=== PATIENT | female | born 1965 | race African-American/Black ===

== ENCOUNTER 2018-02-12 18:39 | Emergency (ER) | payer OTHER ==
[2018-02-12] MEDS ORDERED: Sodium Chloride 0.9% 1,000 ML IV ONE (19:05)
[2018-02-12] MEDS ORDERED: Morphine Sulfate 4 mg/mL 1mL Syr IV STA (19:07)
--- NOTE | 2018-02-12 19:13 | ED Physician Chart ---
ED Chief Complaint/HPI - Patient Information Date Seen:: 02/12/18 Time Seen:: 18:50 Chief Complaint:: abdominal pain History of Present Illness:: Patient had onset 2 hours ago of right upper quadrant pain and pain of the superior back both scapular areas. Patient is nauseated (she states she feels like gagging) was had no vomiting or diarrhea. Pain is nonpleuritic. No chills or fever. No shortness of breath Allergies:: Allergies Allergy/AdvReac Type Severity Reaction Status Date / Time iodine Allergy Verified 02/12/18 19:07 Penicillins Allergy Verified 02/12/18 19:07 Historian:: Patient Review:: Nurse's Note Reviewed ED Review of Systems - Review of Systems General/Constitutional: No fever, No chills Skin: No skin lesions Head: No headache Eyes: No loss of vision ENT: No earache Neck: No neck pain, No swelling Cardio Vascular: No chest pain, No palpitations Pulmonary: No SOB GI: Nausea, Vomiting, Pain G/U: No dysuria Musculoskeletal: No bone or joint pain Endocrine: No polyuria Psychiatric: No prior psych history, No anxiety Hematopoietic: No bruising Allergic/Immuno: No urticaria Neurological: No syncope, No focal symptoms ED Past Medical History - Past Medical History Past Medical History: DM, CAD, CHF, Other (patient had a myocardial infarction of her left anterior descending artery 09/25/2016 for which she had balloon angioplasty) Family History: Other (factor V deficiency; congestive heart failure) Social History: Non Smoker, No Alcohol, , Other Employment:: Patient quit smoking one year ago Surgical History: Cholecystectomy, other (empyema) Psychiatricy History: None Medication: Reviewed Family Medical History - Family Member Mother History Unknown: Yes ED Physical Exam - Physical Examination General/Constitutional: Awake, Well-developed, well-nourished, Alert, No distress, GCS 15, Non-toxic appearing, Ambulatory Head: Atraumatic Eyes: Lids, conjuctiva normal, PERRL Skin: Nl inspection, No rash ENMT: External ears, nose nl, Lips, teeth, gums nl Neck: No nuchal rigidity Respiratory: Nl effort/Exclusion, Clear to Auscultation, No Wheeze/Rhonchi/Rales Cardio Vascular: RRR, No murmur, gallop, rubs, NL S1 S2 GI: No organomegaly, No hernia, Normal BS's Other GI comments:: Right upper quadrant tenderness : No CVA tenderness Extremities: Normal digits & nails Neuro/Psych: No focal deficits ED Labs/Radiology/EKG Results - Lab Results Results: Abnormal Lab Results 02/12/18 02/12/18 19:50 19:50 Sodium 143 Potassium 3.3 L Chloride 109 H Carbon Dioxide 22.9 Anion Gap 14.4 BUN 10 Creatinine 0.6 Est GFR ( Amer) > 60.0 Est GFR (Non-Af Amer) > 60.0 BUN/Creatinine Ratio 16.7 Glucose 171 H Calcium 9.7 Troponin I 0.01 Lipase 18 Abnormal Lab Results 02/12/18 02/12/18 02/12/18 19:32 19:32 19:50 WBC 6.3 RBC 5.08 Hgb 15.1 Hct 45.7 MCV 90.0 MCH 29.7 MCHC Differential 33.0 RDW 13.7 Plt Count 25 L* MPV 8.2 Add Manual Diff YES Neutrophils % Band Neutrophils % 0 Lymphocytes % Monocytes % Eosinophils % Basophils % Neutrophils (Manual) 18 L Lymphocytes 78 H Monocytes 2 Eosinophils 2 Basophils 0 Platelet Estimate DECREASED PLATELETS Platelet Morphology NORMAL RBC Morph Micro Appear NORMAL Sodium Potassium Chloride Carbon Dioxide Anion Gap BUN Creatinine Est GFR ( Amer) Est GFR (Non-Af Amer) BUN/Creatinine Ratio Glucose Calcium Troponin I B-Natriuretic Peptide Lipase Urine Source CLEAN C Urine Color YELLOW Urine Clarity CLEAR Urine pH 6.0 Ur Specific Myton 1.025 Urine Protein 100 H Urine Glucose (UA) >=1000 H Urine Ketones NEGATIVE Urine Blood NEGATIVE Urine Nitrate NEGATIVE Urine Bilirubin SMALL H Urine Urobilinogen 0.2 Ur Leukocyte Esterase NEGATIVE Urine RBC 0-2 Urine WBC 0-2 Ur Epithelial Cells FEW Urine Bacteria 1+ H Urine Mucus MODERATE Urine Test NEGATIVE 02/12/18 02/12/18 02/12/18 19:50 19:50 19:50 WBC RBC Hgb Hct MCV MCH MCHC Differential RDW Plt Count MPV Add Manual Diff Neutrophils % Band Neutrophils % Lymphocytes % Monocytes % Eosinophils % Basophils % Neutrophils (Manual) Lymphocytes Monocytes Eosinophils Basophils Platelet Estimate Platelet Morphology RBC Morph Micro Appear Sodium 143 Potassium 3.3 L Chloride 109 H Carbon Dioxide 22.9 Anion Gap 14.4 BUN 10 Creatinine 0.6 Est GFR ( Amer) > 60.0 Est GFR (Non-Af Amer) > 60.0 BUN/Creatinine Ratio 16.7 Glucose 171 H Calcium 9.7 Troponin I 0.01 B-Natriuretic Peptide < 5.0 L Lipase 18 Urine Source Urine Color Urine Clarity Urine pH Ur Specific Myton Urine Protein Urine Glucose (UA) Urine Ketones Urine Blood Urine Nitrate Urine Bilirubin Urine Urobilinogen Ur Leukocyte Esterase Urine RBC Urine WBC Ur Epithelial Cells Urine Bacteria Urine Mucus Urine Test 02/12/18 21:08 WBC 6.3 RBC 5.24 H Hgb 15.5 Hct 46.8 MCV 89.3 MCH 29.5 MCHC Differential 33.0 RDW 13.9 Plt Count 218 D MPV 8.6 Add Manual Diff Neutrophils % 46.9 Band Neutrophils % Lymphocytes % 46.2 Monocytes % 4.9 Eosinophils % 1.4 Basophils % 0.6 Neutrophils (Manual) Lymphocytes Monocytes Eosinophils Basophils Platelet Estimate Platelet Morphology RBC Morph Micro Appear Sodium Potassium Chloride Carbon Dioxide Anion Gap BUN Creatinine Est GFR ( Amer) Est GFR (Non-Af Amer) BUN/Creatinine Ratio Glucose Calcium Troponin I B-Natriuretic Peptide Lipase Urine Source Urine Color Urine Clarity Urine pH Ur Specific Myton Urine Protein Urine Glucose (UA) Urine Ketones Urine Blood Urine Nitrate Urine Bilirubin Urine Urobilinogen Ur Leukocyte Esterase Urine RBC Urine WBC Ur Epithelial Cells Urine Bacteria Urine Mucus Urine Test - Radiology Results Results: Chest x-ray showed atelectasis left side; otherwise negative - EKG Interpretations Rate & Rhythm: normal sinus rhythm with a rate of 99; normal axis; left ventricular hypert ED Assessment - Assessment General Assessment: At 2323 patient's abdominal pain was much improved. Lab tests were normal except for potassium of 3.3 and CAT scan of the abdomen and pelvis showed no acute disease. Patient is okay for discharge with a diagnosis of gastritis. ED Septic Shock - . Is Septic Shock (SBP<90, OR Lactate>4 mmol\L) present?: No ED Reassessment (Disposition) - Diagnosis Diagnosis:: Gastritis; status post cholecystectomy - Aftercare/Follow up Instructions Aftercare/Follow-Up Instructions:: Refer to Discharge Instructions - Patient Disposition Discharge/Transfer:: Home Condition at Disposition:: Stable, Improved
[2018-02-12 20:04] LABS: HEMATOCRIT 45.7 % (41.0-60); HEMOGLOBIN 15.1 gm/dL (12-16); MEAN CORPUSCULAR HEMOGLOBIN 29.7 pg (27.0-31.0); MEAN PLATELET VOLUME 8.2 fl; RED BLOOD COUNT 5.08 Mil/cmm (3.80-5.10); RED CELL DISTRIBUTION WIDTH 13.7 % (11.5-20.0); WHITE BLOOD COUNT 6.3 Th/cmm (4.8-10.8)
[2018-02-12] MEDS ORDERED: Morphine Sulfate 4 mg/mL 1mL Syr ONE (20:10)
[2018-02-12 20:14] LABS: ANION GAP 14.4 (7.0-16.0); BUN - UREA NITROGEN 10 mg/dL (7-25); CALCIUM SERUM 9.7 mg/dL (8.6-10.3); CARBON DIOXIDE 22.9 mEq/L (21.0-31.0); CHLORIDE 109 mEq/L (98-107); CREATININE - SERUM 0.6 mg/dL (0.6-1.2); GFR AFRICAN-AMERICAN > 60.0 ml/min (>90); GFR NON AFRICAN-AMERICAN > 60.0 ml/min; GLUCOSE 171 mg/dL (70-105); LIPASE 18 U/L (11-82); POTASSIUM SERUM 3.3 mEq/L (3.5-5.1); SODIUM SERUM 143 mEq/L (136-145)
[2018-02-12 20:38] LABS: BAND NEUTROPHILE 0 % (0-10); LYMPHOCYTE 78 % (20-50); NEUTROPHILS 18 % (40-80); PLATELET COUNT 25 Th/cmm (150-400)
[2018-02-12 20:39] LABS: BASOPHIL 0 % (0-3); EOSINOPHIL 2 % (0-5); MONOCYTE 2 % (2-10); PLATELET ESTIMATE DECREASED PLATELETS (NORMAL); PLATELET MORPHOLOGY NORMAL (NORMAL)
[2018-02-12 20:44] LABS: URINE SOURCE CLEAN C
[2018-02-12 20:48] LABS: URINE BILIRUBIN SMALL (NEGATIVE); URINE BLOOD NEGATIVE (NEGATIVE); URINE GLUCOSE (UA) >=1000 mg/dL (NEGATIVE); URINE KETONE NEGATIVE (NEGATIVE); URINE LEUKOCYTE ESTERASE NEGATIVE (NEGATIVE); URINE MICROSCOPIC INDICATED? YES; URINE NITRATE NEGATIVE (NEGATIVE); URINE PROTEIN 100 mg/dL (NEGATIVE); URINE UROBILINOGEN 0.2 E.U./dL (0.2 - 1.0)
[2018-02-12] MEDS ORDERED: HYDROmorphone 1 mg/mL 1mL Syr IVP STA ×2 (21:05→22:57)
[2018-02-12] MEDS ORDERED: HYDROmorphone 1 mg/mL 1mL Syr ONE ×2 (21:10→23:05)
[2018-02-12 21:12] LABS: % BASOPHILS 0.6 % (0.0-2.0); % EOSINOPHILS 1.4 % (0.0-5.0); % LYMPHOCYTES 46.2 % (20.0-50.0); % MONOCYTES 4.9 % (2.0-10.0); % NEUTROPHILS 46.9 % (40.0-80.0); EOSINOPHILE ABSOLUTE 0.1 Th/cmm (0.1-0.4); HEMATOCRIT 46.8 % (41.0-60); HEMOGLOBIN 15.5 gm/dL (12-16); LYMPHOCYTE ABSOLUTE 2.9 Th/cmm (1.5-3.0); MEAN CELL VOLUME 89.3 fl (81-100); MEAN CORPUSCULAR HEMOGLOBIN 29.5 pg (27.0-31.0); MEAN PLATELET VOLUME 8.6 fl; MONOCYTE ABSOLUTE 0.3 Th/cmm (0.3-1.0); RED BLOOD COUNT 5.24 Mil/cmm (3.80-5.10); RED CELL DISTRIBUTION WIDTH 13.9 % (11.5-20.0); WHITE BLOOD COUNT 6.3 Th/cmm (4.8-10.8)
[2018-02-12 21:12] LABS: URINE CLARITY CLEAR (CLEAR); URINE COLOR YELLOW
[2018-02-12 21:13] LABS: PLATELET COUNT 218 Th/cmm (150-400)
[2018-02-12 21:24] LABS: URINE BACTERIA 1+ /hpf (NONE SEEN); URINE EPITHELIAL CELLS FEW /lpf (FEW); URINE RBC 0-2 /hpf (0-5); URINE WBC 0-2 /hpf (0-5)
[2018-02-12] MEDS ORDERED: Potassium Chloride 20 mEq ER Tab PO ONE ×2 (23:25→23:30)
--- NOTE | 2018-02-13 08:14 | Diagnostic Imaging Report ---
CT scan abdomen and pelvis without intravenous contrast HISTORY: Pain Total DLP equals 862 CTDI equals 18.7 Axial sections were obtained from the xiphoid process down to the pubic symphysis. The liver demonstrates a normal size. There is a decrease in overall hepatic parenchymal density. The findings suggest changes of fatty infiltration and should be correlated with liver function tests. No focal lesions. The spleen appears normal. Surgical clip seen in the melanie hepatis region consistent with a prior cholecystectomy. No focal amenities seen within the pancreas. No focal renal lesions. No hydronephrosis. There is a small fat-containing umbilical hernia. The exam of the pelvis demonstrates preservation of normal fat planes. No abnormal soft tissue masses or abnormal fluid collections. The uterus is situated to the right side of the pelvis. No bowel dilatation. Atherosclerotic calcification seen through the aorta. Degenerative changes seen in the spine. IMPRESSION: 1. No acute abnormalities 2. Findings of a prior cholecystectomy 3. Findings consistent with hepatic fatty infiltration. The changes should be correlated with liver function tests 4. Atherosclerotic vascular changes
--- NOTE | 2018-02-13 08:16 | Diagnostic Imaging Report ---
Portable chest x-ray HISTORY: Pain The overall heart size is difficult to assess with portable technique in a poor inspiration. A linear density seen within the left perihilar region that may be associated with scarring. No other focal processes. IMPRESSION: 1. Linear density within the left perihilar region that may be related to scarring or possibly subsegmental atelectasis. No other acute abnormalities.
== END 2018-02-12 23:35 | disposition home or self-care (01) ==
LOC: ER 18:39
DX: K29.70 Gastritis, unspecified, without bleeding (principal); E11.9 Type 2 diabetes mellitus without complications; I25.10 Atherosclerotic heart disease of native coronary artery without angina pectoris; I50.9 Heart failure, unspecified; Z90.49 Acquired absence of other specified parts of digestive tract; Z87.891 Personal history of nicotine dependence
CPT/HCPCS: 99285; 96374; 96375; 96376; 93005; 71045; 74176; 84484; 83880; 36415; 85007; 85025 ×2; 81001; 81025; 83690; 80048; J2405; J1170; J7030